=== PATIENT | female | born 1995 ===

== ENCOUNTER 2023-04-27 08:32 | Outpatient (CLI) | payer OTHER, SELFPAY ==
--- NOTE | 2023-04-27 08:30 | RT.EKG_ITS ---
APPROVED REPORT Exam: Resting ECG Reason for Exam: High Risk Medication Patient Location: O HR:76 bpm ECG Measurements Heart Rate 76 AXIS DC 150 P 24 QRSd 89 QRS 3 QT 398 T 29 QTc 448 Conclusion Sinus rhythm...normal P axis, V-rate 50- 99 Normal Electrocardiogram
== END 2023-04-27 08:33 | disposition home or self-care (01) ==
PROVIDERS: Visit Provider Family Medicine
DX: Z79.899 Other long term (current) drug therapy (principal)
CPT/HCPCS: 93005; 93010